=== PATIENT | female | born 1975 | race Caucasian/White ===

== ENCOUNTER 2021-05-28 09:49 | Outpatient (CLI) | payer MEDICARE | END 2021-05-28 09:50 | disposition home or self-care (01) | LOC: CSHCT 09:49 | PROVIDERS: ATTEND Neurological Surgery | DX: M54.2 Cervicalgia (principal); Z98.890 Other specified postprocedural states; M47.812 Spondylosis without myelopathy or radiculopathy, cervical region; J98.4 Other disorders of lung | CPT/HCPCS: 72125 ==